=== PATIENT | female | born 1960 | race Caucasian/White ===

== ENCOUNTER → 2017-08-07 | Outpatient (CLI) | payer MEDICARE ==
--- NOTE | 2017-08-07 12:12 | Diagnostic Imaging Report ---
EXAM: DXA BONE DENSITY INDICATIONS: OSTEOPOROSIS SCREENING COMPARISON: None. FINDINGS: Proximal left femur total bone mineral density (BMD) (g/cm2):0.998 Femur T-score (standard deviation relative to young adult mean BMD): 0.5 Femur Z-score (standard deviation relative to age-matched control group):1.2 Proximal left femur neck bone mineral density (BMD) (g/cm2):0.980 Femur T-score (standard deviation relative to young adult mean BMD): 1.2 Femur Z-score (standard deviation relative to age-matched control group):2.3 Lumbar bone mineral density (BMD) (g/cm2):1.065 Lumbar T-score (standard deviation relative to young adult mean BMD): 0.2 Lumbar Z-score (standard deviation relative to age-matched control group):1.4 Change since prior exam (%): Femur:Not applicable. Spine:Not applicable. Change since oldest prior exam (%): Femur:Not applicable. Spine:Not applicable. CONCLUSION: 1. Bone mineral density in the left femur is classified as normal. Fracture risk is not increased. 2. Bone mineral density in the spine is classified as normal. Fracture risk is not increased. World Health Organization Classification: *The Z-score is provided for informational purposes. The T-score is preferable for clinical decisions. When comparing exams, a change of >4% is considered statistically significant. SUGGESTED RECOMMENDATIONS: Normal \T\ Osteopenia:Consideration should be given to use of calcium supplementation, daily multiple vitamins and adequate exercise, as preventive measures against osteoporosis, if clinically indicated. Osteoporosis \T\ Severe Osteoporosis:In addition to the above, consideration should be given to medical therapy against osteoporosis, if clinically indicated. Zhang Godinez M.D. Dictated by: Zhang Godinez M.D. on 08/07/2017 at 12:16 Electronically approved by: Zhnag Godinez M.D. on 08/07/2017 at 12:16
--- NOTE | 2017-08-18 09:55 | Diagnostic Imaging Report ---
THIS REPORT HAS BEEN AMENDED. #[id number] - MGSCRBIL #BILATERAL DIGITAL SCREENING MAMMOGRAM WITH CAD: 08/07/2017 CLINICAL: Routine screening. No prior exams were available for comparison. Current study contains 4 films. There are scattered fibroglandular elements in both breasts. Current study was also evaluated with a Computer Aided Detection (CAD) system. There is amorphous calcification in the right breast at 11 o'clock middle depth. There is also amorphous calcification in the left breast at 3 o'clock posterior depth Scattered benign appearing calcification in both breasts. Biopsy clip in the left breast. No other significant masses or other findings are seen in either breast. IMPRESSION: INCOMPLETE: NEEDS ADDITIONAL IMAGING EVALUATION The amorphous calcification in each breast is indeterminate. Spot magnification views are recommended. The patient will be contacted by the Mammography Department to schedule this appointment. Patrick Gomez Jr., D.O. cw/:08/15/2017 07:39:50 Enterprise Account Executive: Becky VEGA)(Riri), [facility] letter sent: Additional Imaging Needed Mammogram BI-RADS: 0 Indeterminate AMENDMENT: 09/03/2017 Patrick Gomez Jr., D.O. Comparison to outside mammograms dated 10/14/2014 from [facility] is now possible as they have become available. There is no significant interval change from the old studies. The areas of calcification in both breasts were previously present. There is no evidence of malignancy. Amended BI-RADS: 2 Benign letter sent: Compared to Prior B9
== END ==
LOC: MAMMO 11:02
PROVIDERS: ATTEND Internal Medicine
DX: Z12.31 Encounter for screening mammogram for malignant neoplasm of breast (principal); M89.9 Disorder of bone, unspecified
CPT/HCPCS: 77067; 77080

== ENCOUNTER → 2018-08-01 | Day surgery (SDC) | payer MEDICARE, OTHER ==
[2018-07-30 11:34] LABS: BASOPHILS # (AUTO) 0.1 (0.0-0.1); BASOPHILS % 0.9 % (0.0-1.0); EOSINOPHILS # (AUTO) 0.2 (0.0-0.4); EOSINOPHILS % 2.3 % (0.0-6.0); HEMATOCRIT 42.4 % (34.2-44.1); LYMPHOCYTES # (AUTO) 2.9 (1.0-3.2); LYMPHOCYTES % 32.2 % (18.0-39.1); MEAN CORPUSCULAR HEMOGLOBIN 29.9 pg (28-32); MEAN CORPUSCULAR VOLUME 90.6 fL (81-99); MONOCYTES # (AUTO) 0.7 (0.2-0.8); MONOCYTES % 7.8 % (4.4-11.3); NEUTROPHILS % 56.2 % (38.7-80.0); PLATELET COUNT 261 x10e3/uL (140-360); RED BLOOD COUNT 4.68 x10e6/uL (3.6-5.1); RED CELL DISTRIBUTION WIDTH 13.1 % (11.7-14.4)
[~2018-08-01] MED LIST: BENEFIBER1 EAC1; CYMBALTA20 MG PO; DEXILANT60 MG; DIAZEPAM5 MG PO; FENTANYL CITRATE/PF 100MCG/2 ML INJ ONE; KETAMINE HCL INJ 50 MG/ML 10 ML VIAL ONE; LIDOCAINE HCL 2% LOCAL INJ 5 ML SDV VIAL INJ ONE; MIRALAX17 GM; PROPOFOL IV EMULSION 10 MG/ML 50 ML VIAL ONE; SYMBICORT 16010.2 GM; TOPAMAX25 MG; pro air
--- NOTE | 2018-08-01 13:23 | Operative Report ---
DATE OF PROCEDURE: 08/01/2018 SURGEON: Sal Chan MD PROCEDURE: Esophagogastroduodenoscopy with esophageal dilatation and biopsies. INDICATIONS FOR EGD: Dysphagia, acid reflux, bloating. MEDICATIONS: The patient was done under MAC, please see anesthesiologist's note. PROCEDURE IN DETAIL: With the patient in left lateral decubitus position, flexible fiberoptic Olympus gastroscope was introduced into the esophagus under direct visualization without any difficulty. There was some patchy erythema noted in distal esophagus. A mild stricture was noted at the GE junction that was dilated to size 52-Bahraini Perez. The scope was then advanced with ease into the stomach traversing a small sliding hiatal hernia. Mucosa overlying the antrum and the body revealed some patchy erythema, oxze-wl-guxclzzx edema and biopsies were obtained, sent to stain for H pylori. The pylorus was intubated with ease and the scope was advanced all the way to the second portion of the duodenum. Biopsies were obtained from the proximal second portion and the duodenal bulb to rule out sprue. There were some extensive nodularity noted in the proximal bulb and also along the posterior wall and the superior wall and biopsies were obtained. The scope was then withdrawn back into the stomach and retroflexed, mucosa overlying the fundus and cardia appeared to be within normal limits. The scope was then straightened out, it was subsequently withdrawn. The patient tolerated the procedure well. IMPRESSION: 1. Distal esophagitis. 2. Esophageal stricture at GE junction dilated to size 52-Bahraini Perez. 3. Small sliding hiatal hernia. 4. Gastritis, biopsied. Biopsies sent to stain for Helicobacter pylori. 5. Rule out sprue. 6. Nodular duodenal bulb biopsies obtained. PLAN: Follow up histology. Continue Dexilant 60 mg one p.o. q.a.m. a.c. Sal Chan MD [facility] [place] /[id number] cc: Светлана Anthony MD
--- OUTSIDE RECORDS SUMMARY | 2018-08-03 13:35 | XMS REPORT ---
Author Author Admin, [place] Organization [facility] Address Unknown Phone Unavailable Allergies, Adverse Reactions, Alerts Allergy Name Reaction Description Start Date Severity Status Provider EPITOL rash Critical Active Juanpablo Campos MD Conditions or Problems Problem Name Problem Code Onset Date Status Entry Date Provider Comment Standard Description Annotate Back pain 724.5 Active Juanpablo Campos MD Backache, unspecified Fatigue 780.79 Active Juanpablo Campos MD Other malaise and fatigue Dysuria 788.1 Active Rajni Hammer MD Dysuria Vaginal dryness 625.8 Active Rajni Hammer MD Other specified symptoms associated with female genital organs COPD 496 Active Juanpablo Campos MD Chronic airway obstruction, not elsewhere classified GERD 530.81 Active Juanpablo Campos MD Esophageal reflux Hyperlipidemia 272.4 Active Juanpablo Campos MD Other and unspecified hyperlipidemia Smoker 305.1 Active Juanpablo Campos MD Tobacco use disorder Vaccination Against Influenza V04.81 Inactive Juanpablo Campos MD Need for prophylactic vaccination and inoculation against influenza Vaccination Against Influenza ICD-V04.81 Inactive Juanpablo Campos MD Medication List Medication Instructions Start Date Stop Date Generic Name NDC Status Provider Patient Instruction SIMVASTATIN 40 MG ORAL TABLET 1 by mouth every night SIMVASTATIN 09328095779 Active Juanpablo Campos MD Active PREMARIN 0.625 MG/GM VAGINAL CREAM 1 application Every weekly ESTROGENS, CONJUGATED 14685954845 Active Rajni Hammer MD Active PANTOPRAZOLE SODIUM 40 MG ORAL TABLET DELAYED RELEASE take one tab by mouth every day PANTOPRAZOLE SODIUM 01512969181 Active Juanpablo Campos MD Active SYMBICORT 160-4.5 MCG/ACT INHALATION AEROSOL 1 inhalation bid BUDESONIDE- FORMOTEROL FUMARATE 20950363259 Active Juanpablo Campos MD Active ATORVASTATIN CALCIUM 40 MG ORAL TABLET take one tab by mouth every day ATORVASTATIN CALCIUM 40 MG ORAL TABLET 227287 ATORVASTATIN CALCIUM Inactive ATORVASTATIN CALCIUM 40 MG ORAL TABLET take one tab by mouth every day ATORVASTATIN CALCIUM 69611160105 No Longer Active Juanpablo Campos MD Active Immunizations Vaccine Administration Date Value Standard Description influenza immunization (Flu Vax) has been administered given influenza virus vaccine, unspecified formulation Vital Signs Date Name Value Unit Range Description blood pressure, diastolic 64 mm[Hg] BP hurtado blood pressure, systolic 107 mm[Hg] BP sys height E&M 66 [in_us] Bdy height pulse rate E&M 69 /min Heart rate respiratory rate E&M 18 /min Resp rate temperature E&M 98.9 [degF] Body temperature weight E&M 173.25 [lb_av] Weight Measured blood pressure, diastolic 75 mm[Hg] BP hurtado blood pressure, systolic 129 mm[Hg] BP sys height E&M 66 [in_us] Bdy height pulse rate E&M 62 /min Heart rate respiratory rate E&M 18 /min Resp rate temperature E&M 98.9 [degF] Body temperature weight E&M 176.50 [lb_av] Weight Measured blood pressure, diastolic 79 mm[Hg] BP hurtado blood pressure, systolic 115 mm[Hg] BP sys height E&M 66 [in_us] Bdy height pulse rate E&M 64 /min Heart rate respiratory rate E&M 18 /min Resp rate temperature E&M 97.7 [degF] Body temperature weight E&M 177.38 [lb_av] Weight Measured blood pressure, diastolic 58 mm[Hg] BP hurtado blood pressure, systolic 105 mm[Hg] BP sys height E&M 66 [in_us] Bdy height pulse rate E&M 68 /min Heart rate respiratory rate E&M 17 /min Resp rate temperature E&M 98.5 [degF] Body temperature weight E&M 170.50 [lb_av] Weight Measured height E&M 66 [in_us] Bdy height weight E&M 170.38 [lb_av] Weight Measured Diagnostic Results Date Name Value Unit Range Description Lab Report: Comp. Metabolic Panel (14), Lipid Panel - Chemistry calcium, serum 9.2 mg/dL 8.7-10.2 Lab Report: CBC With Differential/Platelet, Vitamin B12 - Hematology basophils as percent of blood leukocytes 0 % Not Estab. lymphocyte count, blood, automated 4.4 X10E3/UL 10*3/mm3 0.7-3.1 Lab Report: Comp. Metabolic Panel (14), Lipid Panel - Chemistry urea nitrogen, blood 13 mg/dL 6-24 Lab Report: CBC With Differential/Platelet, Vitamin B12 - Hematology monocyte count, blood, automated 1.1 X10E3/UL 10*3/uL 0.1-0.9 Lab Report: Comp. Metabolic Panel (14), Lipid Panel - Chemistry urea nitrogen/creatinine ratio, serum 18 9-23 Lab Report: CBC With Differential/Platelet, Vitamin B12 - Chemistry immature granulocytes, percentage of total cells, blood 0 % Not Estab. Lab Report: Comp. Metabolic Panel (14), Lipid Panel - Genetics/fertility eGFR if 110 mL/min/1.73m2 >59 Lab Report: Comp. Metabolic Panel (14), Lipid Panel - Chemistry creatinine, serum 0.71 mg/dL 0.57-1.00 chloride, serum 103 mmol/L 96-106 Lab Report: CBC With Differential/Platelet, Vitamin B12 - Hematology mean corpuscular volume, RBC 93 fL 79-97 Lab Report: Comp. Metabolic Panel (14), Lipid Panel - Chemistry triglyceride, serum, fasting 75 mg/dL 0-149 Lab Report: CBC With Differential/Platelet, Vitamin B12 - Hematology lymphocytes as percent of blood leukocytes 36 % Not Estab. erythrocyte (RBC) count 4.92 X10E6/UL 10*6/mm3 3.77-5.28 Lab Report: Comp. Metabolic Panel (14), Lipid Panel - Chemistry Estimated Glomerular Filtration Rate (calc) 96 mL/min/1.73m2 >59 Lab Report: CBC With Differential/Platelet, Vitamin B12 - Hematology platelet count 257 X10E3/UL 10*3/mm3 150-379 Lab Report: Comp. Metabolic Panel (14), Lipid Panel - Chemistry carbon dioxide, venous blood 20 mmol/L 18-29 Lab Report: CBC With Differential/Platelet, Vitamin B12 - Hematology red blood cell distribution width 13.7 % 12.3-15.4 Lab Report: Comp. Metabolic Panel (14), Lipid Panel - Chemistry protein, total, serum 6.4 g/dL 6.0-8.5 HDL cholesterol, serum 49 mg/dL >39 sodium, serum 142 mmol/L 926-176 2849/01/31 albumin/globulin ratio, serum 1.9 1.2-2.2 Lab Report: CBC With Differential/Platelet, Vitamin B12 - Hematology eosinophils as percent of blood leukocytes 1 % Not Estab. Lab Report: Comp. Metabolic Panel (14), Lipid Panel - Chemistry alkaline phosphatase, serum 69 U/L 39-117 Lab Report: CBC With Differential/Platelet, Vitamin B12 - Chemistry Absolute Neutrophils 6.3 X10E3/UL 10*3/uL 1.4-7.0 Lab Report: CBC With Differential/Platelet, Vitamin B12 - Hematology basophil count, absolute 0.0 x10E3/uL 0.0-0.2 Lab Report: Comp. Metabolic Panel (14), Lipid Panel - Chemistry alanine aminotransferase (SGPT), serum 13 U/L 0-32 LDL cholesterol, serum 199 mg/dL 0-99 Lab Report: CBC With Differential/Platelet, Vitamin B12 - Hematology Eosinophil Absolute Count 0.1 X10E3/UL 10*3/uL 0.0-0.4 monocytes as percent of blood leukocytes 9 % Not Estab. Lab Report: Urine Culture, Routine, Result - Urinalysis urine culture No growth Lab Report: Comp. Metabolic Panel (14), Lipid Panel - Chemistry cholesterol, serum 263 mg/dL 100-199 Lab Report: CBC With Differential/Platelet, Vitamin B12 - Hematology mean corpuscular hemoglobin, RBC 30.9 pg 26.6-33.0 Lab Report: Comp. Metabolic Panel (14), Lipid Panel - Chemistry bilirubin, serum, total 0.2 mg/dL 0.0-1.2 Lab Report: CBC With Differential/Platelet, Vitamin B12 - Hematology mean corpuscular hemoglobin concentration, RBC 33.3 G/DL % 31.5-35.7 hemoglobin, blood 15.2 g/dL 11.1-15.9 neutrophils as percent of blood leukocytes 54 % Not Estab. leukocyte count, blood 12.0 X10E3/UL 10*3/mm3 3.4-10.8 Lab Report: CBC With Differential/Platelet, Vitamin B12 - Chemistry B-12, serum 359 pg/mL 232-1245 Lab Report: CBC With Differential/Platelet, Vitamin B12 - Hematology hematocrit, blood 45.6 % 34.0-46.6 Lab Report: Comp. 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 Patient Exp Problem - 61571 Juanpablo Campos MD CPT-56464 [facility] 16:07:46 ICEBOX WORKER Est Patient Exp Problem - 43238 Juanpablo Campos MD CPT-15245 [facility] 14:35:10 ICEBOX WORKER Est Patient Problem Focus - 86072 Rajni Hammer MD CPT-27725 [facility] 10:04:00 CDT New Patient Comprehensive - 41375 Juanpablo Campos MD CPT-40171 [facility] Procedures Code Procedure Name Date Entry Date Standard Description CPT-94266 Urinalysis - Dip only - In House 14:35:10 ICEBOX WORKER CPT-60659 Admin of Vaccine - Injection - 1 10:04:46 CDT CPT-25928 INFLUENZA VACCINE QUADRIVALENT 3 YRS PLUS IM 10:04:46 CDT
--- OUTSIDE RECORDS SUMMARY | 2018-08-03 13:35 | XMS REPORT ---
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 Allergies, Adverse Reactions, Alerts Allergy Name Allergy Type Status Severity Reaction(s) Onset Date Inactive Date Treating Clinician Comments No Known Allergies DA Active U 2018-05-17 00:00:00 Medications This patient has no known medications. Results Test Description Test Time Test Comments Text Results Atomic Results Result Comments - XR HAND 3 + V LT 2018-05-17 10:23:00 FAX: Latesha Goel NP [place]: St: REG Name: HARJINDER LUCIO [facility] : 1960 Age/S: 57/F [address] Unit #: [id number] Loc: [place] [address] Phys: Latesha Goel NP Acct: [id number] Dis Date: Status: REG ER PHONE #: [phone] Exam Date: 05/17/2018 0952 FAX #: [phone] Reason: L thumb EXAMS: CPT CODE: [id number] XR HAND 3 + [place] [address] HISTORY: Left thumb and infection. COMPARISON: None available. 3 views of the left hand: No acute fracture or dislocation. Narrowed DIP and the PIP joint spaces. No erosive or destructive changes. Narrowed radiocarpal joint spaces. Subchondral cyst within the distal radius. Soft tissue swelling of the 1st digit. IMPRESSION: No erosive or destructive change or acute fracture or dislocation. Soft tissue swelling. at 1023 Reported and signed by: Roland Mauricio M.D. CC: Latesha Goel NP Technologist: Gloria Vazquez(R) Trnscrd Date/Time/By: 05/17/2018 (1023) : By: [email or web address] Orig Print D/T: S: 05/17/2018 (1027) PAGE 1 Signed Report BASIC METABOLIC PANEL 2018-05-17 09:50:00 SODIUM (test code=NA) 141 mmol/L 136-145 POTASSIUM (test code=K) 4.5 mmol/L 3.5-5.1 CHLORIDE (test code=CL) 110.0 mmol/L 98-107 CARBON DIOXIDE (test code=CO2) 25.0 mmol/L 21-32 ANION GAP (test code=GAP) 10.5 10-20 GLUCOSE (test code=GLU) 82 mg/dL 74-106 BLOOD UREA NITROGEN (test code=BUN) 13 mg/dL 7-18 GLOMERULAR FILTRATION RATE (test code=GFR) > 60 mL/min >=60 Estimated GFR by using Modified MDRD formula.Chronic kidney disease is defined as either kidney damageor GFR <60 mL/min/1.73 m2 for >3 months. CREATININE (test code=CREAT) 0.80 mg/dL 0.55-1.02 Note change in reference range due to change in reagent. BUN/CREATININE RATIO (test code=BUN/CREA) 16.3 10-20 CALCIUM (test code=CA) 9.1 mg/dL 8.5-10.1 BASIC METABOLIC [id number] 09:46:00* Test Item Value Reference Range Comments SODIUM (test code=NA) 141 mmol/L 136-145 POTASSIUM (test code=K) 4.5 mmol/L 3.5-5.1 CHLORIDE (test code=CL) 110.0 mmol/L 98-107 CARBON DIOXIDE (test code=CO2) mmol/L 21-32 ANION GAP (test code=GAP) 10-20 GLUCOSE (test code=GLU) mg/dL 74-106 BLOOD UREA NITROGEN (test code=BUN) mg/dL 7-18 GLOMERULAR FILTRATION RATE (test code=GFR) mL/min >=60 CREATININE (test code=CREAT) mg/dL 0.55-1.02 BUN/CREATININE RATIO (test code=BUN/CREA) 10-20 CALCIUM (test code=CA) mg/dL 8.5-10.1 CBC W/O [id number] 09:43:00* Test Item Value Reference Range Comments WHITE BLOOD CELL (test code=WBC) 10.2 K/mm3 4.5-12.5 RED BLOOD CELL (test code=RBC) 5.06 mill/mm3 3.7-5.2 HEMOGLOBIN (test code=HGB) 14.8 gram/dL 11.5-15.5 HEMATOCRIT (test code=HCT) 47.4 % 36.0-46.0 MEAN CELL VOLUME (test code=MCV) 93.7 fL 80-98 MEAN CELL HGB (test code=MCH) 29.2 picogram 27.0-33.0 MEAN CELL HGB CONCETRATION (test code=MCHC) 31.2 gram/dL 33.0-36.0 RED CELL DISTRIBUTION WIDTH (test code=RDW) 13.1 % 11.6-16.2 PLATELET COUNT (test code=PLT) 286 K/mm3 150-450 MEAN PLATELET VOLUME (test code=MPV) 9.5 fL 6.7-11.0 CBC W/O [id number] 09:36:00* Test Item Value Reference Range Comments WHITE BLOOD CELL (test code=WBC) K/mm3 4.5-12.5 RED BLOOD CELL (test code=RBC) mill/mm3 3.7-5.2 HEMOGLOBIN (test code=HGB) 14.8 gram/dL 11.5-15.5 HEMATOCRIT (test code=HCT) % 36.0-46.0 MEAN CELL VOLUME (test code=MCV) fL 80-98 MEAN CELL HGB (test code=MCH) picogram 27.0-33.0 MEAN CELL HGB CONCETRATION (test code=MCHC) gram/dL 33.0-36.0 RED CELL DISTRIBUTION WIDTH (test code=RDW) % 11.6-16.2 PLATELET COUNT (test code=PLT) K/mm3 150-450 MEAN PLATELET VOLUME (test code=MPV) fL 6.7-11.0 BONE DXA DUAL [id number] 12:16:00 [place] [address] Patient Name: HARJINDER LUCIO MR #: [id number] : 1960 Age/Sex: 56/F Req #: [id number] Adm Physician: Ordered by: BINA GONZALES MD Report #: [id number] Location: [facility] Room/Bed: Procedure: [id number] DX/BONE DXA DUAL ENERGY Ex am Date: Exam Time: REPORT STATUS: Signed EXAM: DXA BONE DENSITY INDICATIONS: OSTEOPOROSIS SCREENING COMPARISON: None . FINDINGS: Proximal left femur total bone mineral density (BMD) (g/c m2): 0.998 Femur T-score (standard deviation relative to young adult mean BM D): 0.5 Femur Z-score (standard deviation relative to age-matched control group): 1.2 Proximal left femur neck bone mineral density (BMD) (g/c m2): 0.980 Femur T-score (standard deviation relative to young adult mean BM D): 1.2 Femur Z-score (standard deviation relative to age-matched control group): 2.3 Lumbar bone mineral density (BMD) (g/cm2): 1.065 Lum bar T-score (standard deviation relative to young adult mean BMD): 0.2 Eusebia mbar Z-score (standard deviation relative to age-matched control group): 1. 4 Change since prior exam (%): Femur: Not applicable. Spine: No t applicable. Change since oldest prior exam (%): Femur: Not applicable. Spine: Not applicable. CONCLUSION: 1. Bone mineral density in the left femur is classified as normal. Fracture risk is not increased. 2. Bone mi neral density in the spine is classified as normal. Fracture risk is not incr eased. World Health Organization Classification: *The Z-score is prov ided for informational purposes. The T-score is preferable for clinical decis ions. When comparing exams, a change of >4% is considered statistically significant. SUGGESTED RECOMMENDATIONS: Normal T Osteopenia: Consideration should be given to use of calcium supplementation, daily multiple vitamins and adequate exercise, as preventive measures against osteoporosis, if clinically indicated. Osteoporosis T Severe Osteoporosis: In addition to the above, consideration should be given to medical therapy against osteoporosis, if clinically indicated. Zhang Godinez M.D. Dictated by: Zhang Godinez M.D. on 08/07/2017 at 12:16 Electronically approved by: Zhang Godinez M.D. on 08/07/2017 at 1 2:16 Dictated By: ZHANG GODINEZ MD 1216 Transcribed By: ROD on 08/07/17 1216 C OPY TO: BINA GONZALES MD MAMMOGRAPHY DIGITAL SCR [id number] 12:13:00 [place] [address] Patient Name: HARJINDER LUCIO MR #: [id number] : 1960 Age/Sex: 57/F Req #: [id number] Adm Physician: Ordered by: BINA GONZALES MD Report #: [id number] Location: MAMMO Room/Bed: Procedure: [id number] MG/MAMMOGRAPHY DIGITAL SCR BILAT Exam Date: 08/07/17 Exam Time: 1148 REPO RT STATUS: Signed THIS REPORT HAS BEEN AMENDED. #[id number] - MGSCRBIL #BILATERAL DIGITAL SCREENING MAMMOGRAM WITH CAD: 08/07/2017 CLINICAL: Routine screening. No prior exams were available for comparison. Current study contains 4 films. There are scattered fibroglandular elements in both breas ts. Current study was also evaluated with a Computer Aided Detection (CAD) s ystem. There is amorphous calcification in the right breast at 11 o'clock mi ddle depth. There is also amorphous calcification in the left breast at 3 o'c lock posterior depth Scattered benign appearing calcification in both breasts. Biopsy clip in the left breast. No other significant masses or other findings are seen in either breast. IMPRESSION: INCOMPLETE: NEEDS ADDITIONAL IMAGING EVALUATION The amorphous calcification in each breast is indeterminate . Spot magnification views are recommended. The patient will be conta cted by the Mammography Department to schedule this appointment. Patrick Gomez Jr., D.O. cw/:08/15/2017 07:39:50 Adz Worker: Becky Sol RT(R)(M), [facility] letter sent: Elton tional Imaging Needed Mammogram BI-RADS: 0 Indeterminate AMEND MENT: 09/03/2017 Patrick Gomez Jr., D.O. Comparison to outside mammograms da teodoro 10/14/2014 from [facility] is now possible as they h ave become available. There is no significant interval change from the old s tudies. The areas of calcification in both breasts were previously present. Th ere is no evidence of malignancy. Amended BI-RADS: 2 Benign letter se nt: Compared to Prior B9 Dictated By: PATRICK GOMEZ DO Electronically Si gned By: PATRICK GOMEZ DO on 08/15/17 0739 Transcribed By: WESTON on 09/03/17 0 920 COPY TO: BINA GONZALES MD
== END | disposition home or self-care (01) ==
LOC: OR 09:12
PROVIDERS: ATTEND Internal Medicine Gastroenterology
DX: K22.2 Esophageal obstruction (principal); K20.9 Esophagitis, unspecified; K44.9 Diaphragmatic hernia without obstruction or gangrene; K29.70 Gastritis, unspecified, without bleeding; Q43.8 Other specified congenital malformations of intestine; R13.10 Dysphagia, unspecified; K21.9 Gastro-esophageal reflux disease without esophagitis; R14.0 Abdominal distension (gaseous); Z01.810 Encounter for preprocedural cardiovascular examination; Z01.812 Encounter for preprocedural laboratory examination; Z68.30 Body mass index [BMI] 30.0-30.9, adult; R12 Heartburn; K59.00 Constipation, unspecified; R11.0 Nausea
CPT/HCPCS: 36415; 43239; 43450; 85025; 93005; J2001; J2704; J3010

== ENCOUNTER → 2022-06-20 | Day surgery (SDC) | payer MEDICARE, OTHER ==
[2022-06-11 13:45] LABS: BASOPHILS # (AUTO) 0.1 (0.0-0.1); EOSINOPHILS # (AUTO) 0.2 (0.0-0.4); EOSINOPHILS % 1.6 % (0.0-6.0); HEMATOCRIT 45.9 % (34.2-44.1); HEMOGLOBIN 15.4 g/dL (12.0-16.0); LYMPHOCYTES # (AUTO) 3.6 (1.0-3.2); LYMPHOCYTES % 29.2 % (18.0-39.1); MEAN CORPUSCULAR HEMOGLOBIN 29.8 pg (28-32); MEAN CORPUSCULAR HGB CONC 33.6 g/dL (31-35); MONOCYTES % 8.1 % (4.4-11.3); NEUTROPHILS # (AUTO) 7.3 (2.1-6.9); NEUTROPHILS % 59.6 % (38.7-80.0); PLATELET COUNT 337 x10e3/uL (140-360); RED BLOOD COUNT 5.16 x10e6/uL (3.6-5.1)
[~2022-06-20] MED LIST changes: +ALBUTEROL SULF 0.083% NEB SOLN 3 ML NEB ONE; +ALBUTEROL SULFATE HFA 8GM INHALATION AEROSOL INH ONE; +B 12 PO; +CRESTOR10 MG PO; -DEXILANT60 MG; +DEXILANT60 MG PO; +GLUCAGON FOR INJ 1 MG VIAL ONE; +GLYCOPYRROLATE INJ 0.2 MG/ML VIAL ONE; +HYDROXYZIN10 MG/5 ML PO; +HYOSCYAMINE SULFATE 0.5 MG/ML INJ ONE; -KETAMINE HCL INJ 50 MG/ML 10 ML VIAL ONE; +LACTATED RINGER'S 1,000 ML ONE; +MAGNESIUM PO; +METOCLOPRAMIDE HCL 10 MG/2ML VIAL ONE; +NEXLETOL180 MG PO; +POVIDONE IODINE 0.05% 0.05 % ML PO ONE; +PROAIR DIGIHAL90 MCG INH; +PROPOFOL IV EMULSION 10 MG/ML 20 ML VIAL ONE; -PROPOFOL IV EMULSION 10 MG/ML 50 ML VIAL ONE; +PROPRANOLOL HCL20 MG PO; +REXULTI1 MG PO; +SIMETHICONE 40 MG/0.6 ML BTL ONE; +VENLAFAXINE HCL50 MG PO; +VITAMIN D3125 MCG PO
[2022-06-20 10:52] VITALS: TEMP 97.9
[2022-06-20 11:05] VITALS: BP 131/76; PULSE 58; RESP 16; O2SAT 95
== END | disposition home or self-care (01) ==
LOC: OR 08:35
PROVIDERS: ATTEND Internal Medicine Gastroenterology
DX: Z12.11 Encounter for screening for malignant neoplasm of colon (principal); D12.4 Benign neoplasm of descending colon; K52.9 Noninfective gastroenteritis and colitis, unspecified; K57.30 Diverticulosis of large intestine without perforation or abscess without bleeding; K63.89 Other specified diseases of intestine; K56.609 Unspecified intestinal obstruction, unspecified as to partial versus complete obstruction; K29.70 Gastritis, unspecified, without bleeding; K21.9 Gastro-esophageal reflux disease without esophagitis; K64.8 Other hemorrhoids; J44.9 Chronic obstructive pulmonary disease, unspecified; E78.5 Hyperlipidemia, unspecified; G40.909 Epilepsy, unspecified, not intractable, without status epilepticus; R00.1 Bradycardia, unspecified; F41.9 Anxiety disorder, unspecified; F17.210 Nicotine dependence, cigarettes, uncomplicated; Z01.810 Encounter for preprocedural cardiovascular examination; Z01.812 Encounter for preprocedural laboratory examination; Z79.899 Other long term (current) drug therapy
CPT/HCPCS: 36415; 45380; 45385; 85025; 93005; J1610; J1980; J2001; J2704; J2765; J3010; J7121; 45378